=== PATIENT | female | born 2000 | race Caucasian/White ===

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

== ENCOUNTER 2022-04-03 18:29 | Emergency (ER) | payer MEDICAID, SELFPAY ==
[2022-04-03 18:31] VITALS: BP 114/62; PULSE 83; RESP 18; TEMP 37.2; O2SAT 98; BMI 47.8
--- NOTE | 2022-04-03 18:35 | ECG_ITS ---
Test Reason : BACK PAIN Blood Pressure : / mmHG Vent. Rate : 095 BPM Atrial Rate : 095 BPM P-R Int : 162 ms QRS Dur : 088 ms QT Int : 374 ms P-R-T Axes : 039 017 020 degrees QTc Int : 469 ms Normal sinus rhythm Normal ECG When compared with ECG of 06-DEC-2017 13:10, Heart rate has increased Referred By: Generic ED Physician Electronically Signed By:URIEL CASTELAN MD
[2022-04-03 18:37] LABS: Glucose, Whole Blood 104 mg/dL (60-115)
[2022-04-03 18:48] LABS: MANUAL DIFF FLAG NO
[2022-04-03 18:49] LABS: Basophils Percent Auto 0.4 % (0-2); Eosinophils Absolute Auto 0.1 X10*3/uL (0.0-0.4); Eosinophils Percent Auto 0.9 % (0-4); Hematocrit 40.5 % (37.0-47.0); Hemoglobin 13.2 g/dl (12.0-16.0); Imm Gran Abs Auto 0.02 X10*3/uL (0.00-0.03); Imm Gran Pct Auto 0.2 % (0.0-0.4); Lymphocytes Absolute Auto 2.1 X10*3/uL (1.2-4.9); Lymphocytes Percent Auto 19.8 % (20-40); Mean Corpuscular HGB Conc 32.6 g/dl (31.0-35.0); Mean Corpuscular Hemoglobin 26.4 pg (27.0-33.0); Mean Platelet Volume 10.6 fL (9.4-12.3); Monocytes Absolute Auto 0.8 X10*3/uL (0.1-1.2); Monocytes Percent Auto 7.8 % (2-11); Neutrophils Absolute Auto 7.3 x10*3/uL (2.0-8.3); Neutrophils Percent Auto 70.9 % (45-73); Platelet Count 380 X10*3/uL (160-400); Red Cell Distribution Width 13.1 % (11.0-16.0); White Blood Count 10.3 X10*3/uL (4.8-10.8)
[2022-04-03 19:07] LABS: Alanine Aminotransferase 15 U/L (0-31); Albumin Level 4.6 g/dL (3.5-5.0); Alkaline Phosphatase 99 U/L (39-117); Anion Gap 18 (12-20); Aspartate Amino Transferase 13 U/L (5-31); Bilirubin Direct 0.2 mg/dL (0.0-0.5); Bilirubin Total 0.6 mg/dL (0.0-1.0); Blood Urea Nitrogen 10 mg/dL (9-16); Calcium 9.9 mg/dL (8.4-10.2); Carbon Dioxide 24 mmol/L (22-29); Chloride 104 mmol/L (96-108); Creatinine Clr Calc Pharmacy 155.2; Estimated Glomerular Filt Rate > 60; Glucose Random 93 mg/dL (60-115); Lipase 20 U/L (8-78); Potassium 4.1 mmol/L (3.3-5.1); Sodium 142 mmol/L (135-145); Total Protein 8.2 g/dL (6.5-8.0)
[2022-04-03 19:13] LABS: Troponin-I High Sensitivity < 3.5 ng/L (<3.5-17.0)
== END 2022-04-03 22:19 | disposition left against medical advice (07) ==
LOC: HO.ED 22:11
PROVIDERS: Emergency Provider Emergency Medicine; PCP Registered Nurse Community Health
DX: R42 Dizziness and giddiness (principal)
CPT/HCPCS: 36415; 80053; 82248; 82947; 83690; 84484; 85025; 93005; 99283

== ENCOUNTER 2022-10-07 16:05 | Outpatient (REF) | payer MEDICAID, SELFPAY ==
--- NOTE | ~2022-10-07 | US_ITS ---
EXAMINATION: US PELVIS CLINICAL INFORMATION: Irregular menstruation COMPARISON: Previous pelvic ultrasound October 2016 TECHNIQUE: Ultrasound of the pelvis is performed using both transabdominal and transvaginal transducers along with Doppler. Transvaginal imaging is performed due to inadequate visualization transabdominally. Transvaginal exam is limited as the patient could not empty her bladder. FINDINGS: The uterus is anteverted and retroflexed and measures 9.3 x 3.4 x 4.4 cm in dimension. No focal uterine lesion is seen. Endometrial thickness is normal measuring 1 cm. The ovaries are seen transabdominally only and are normal-appearing. The right ovary measures 2.1 x 2 x 2.9 cm and the left ovary measures 3.1 x 2.1 x 2.3 cm. There is no fluid in the pelvis. There is some mobile echogenic debris seen in the bladder. US/US pelvic and transvaginal IMPRESSION: Normal-appearing uterus and bladder. Mobile echogenic debris seen in the bladder. The patient could not empty her bladder for transvaginal exam. Correlation with urinalysis recommended.
== END 2022-10-07 16:06 | disposition home or self-care (01) ==
LOC: HO.US 16:05
PROVIDERS: PCP Internal Medicine; Visit Provider Advanced Practice Midwife
DX: N92.6 Irregular menstruation, unspecified (principal)
CPT/HCPCS: 76830; 76856

== ENCOUNTER 2022-12-21 09:03 | Emergency (ER) | payer MEDICAID, SELFPAY ==
[2022-12-21 09:13] VITALS: BP 131/90; PULSE 86; RESP 18; TEMP 36.7; O2SAT 98; BMI 44.3
[2022-12-21 09:34] LABS: COVID-19 Test Negative (Negative); IDNOW Serial# 6674DD1D
[2022-12-21 09:57] LABS: IDNOW Serial# 08D9AD1C
[2022-12-21 10:00] LABS: Strep A Nucleic Acid Negative (Negative)
--- NOTE | 2022-12-21 10:04 | PC.NURSE ---
Patient with sore throat and URI symptoms. Patient voice harsh at this time. Patient alert and orient, calm and cooperative with staff.
--- NOTE | 2022-12-21 11:04 | ED.GENADULT ---
HPI - General Adult General Chief complaint: Upper Respiratory Symptoms Stated complaint: sore throat/ fever/ discharge eyes Time Seen by Provider: 12/21/22 10:39 Source: patient Mode of arrival: ambulatory Limitations: no limitations History of Present Illness HPI narrative: 22-year-old female presents to ED for sore throat fever, right ear pain, clear discharge from both eyes, body aches, chills, and cough for 3 days. Patient was seen in urgent care yesterday for similar symptoms. patient denies any chest pain or shortness of breath. Patient states no rash, abdominal pain, nausea, vomiting, diarrhea, dysuria, hematuria, flank pain, or vaginal bleeding. Related Data Previous Rx's Medication Instructions Recorded ibuprofen 400 mg tablet 400 mg PO Q6H PRN fever or pain 7 12/21/22 days #28 tabs Allergies Allergy/AdvReac Type Severity Reaction Status Date / Time No Known Allergies Allergy Verified 12/21/22 09:12 [No Known Allergies*] Review of Systems Review of Systems: sore throat, fever, right ear pain, dry cough, crusting in eyes Yes all other systems are reviewed and are negative [facility] Social History Social History Alcohol intake: never Smoked in Last 30 Days: No Use of substances other than those prescribed or required for medical reasons: No Advance Directives: No Advance Directives Information Provided: No Physical Exam ED Vital Signs: Vital Signs - 24 hr 12/21/22 09:13 12/21/22 11:23 Temperature 98.1 F Pulse Rate 86 76 Respiratory Rate 18 16 Blood Pressure 131/90 H 124/75 Pulse Oximetry 98 100 Oxygen Delivery Method Room Air Room Air BMI result Body Mass Index 44.3 Const General: cooperative, healthy appearing, comfortable, no acute distress, well developed, alert, awake and Physically active Orientation/consciousness: oriented to person, oriented to place, oriented to time and patient oriented x3 HENMT Head: Yes normal to inspection, Yes No palpable skull fracture present, Yes normocephalic, Yes atraumatic and No abrasion Ears: hearing grossly normal bilaterally, external ears normal, TM's normal bilaterally, TM normal on the right, TM normal on the left, EAC's normal, mastoids normal and no periauricular adenopathy General nose exam: Normal external nose present and Normal nares present Face and sinus: Yes normal facial exam and Yes sinuses nontender Throat: Yes posterior oropharynx normal, Yes tonsils normal and Yes uvula midline Eyes General: appearance normal, both eyes and all related structures Neck Neck: Yes normal visual inspection, Yes full ROM, Yes no lymphadenopathy, Yes no meningeal signs, Yes trachea midline, Yes supple, No anterior neck swelling and No tender Chest Chest palpation & inspection: normal inspection of the chest and normal palpation of entire chest wall Resp Effort & Inspection: normal respiratory effort and able to speak in complete sentences Auscultation: clear to auscultation bilaterally Cardio Jugular venous distension: no JVD Heart sounds: S1 normal heart sound present and S2 normal heart sound present GI Inspection: Yes normal to inspection and No abdominal wall ecchymosis Palpation (GI): Soft to palpation, not firm, nontender, no guarding and not rigid General: No CVA tenderness and Yes no CVA tenderness Back/Spine/Pelvis Back: no CVA tenderness, No CVA tenderness and No back tenderness Skin General skin exam: no rashes or lesions noted, elasticity normal and turgor normal Neuro General: oriented to person, oriented to place, oriented to time, patient oriented x3, gait normal, tone normal, moves all extremities, Normal light touch and pain sensation, no meningeal signs, no focal motor deficits, CN's II-XI intact bilaterally and normal sensation to monofilament Extrem General: Yes normal to inspection and Yes full ROM Psych Appearance: grossly normal, well kempt and not disheveled Medical Decision Making Medical Decision Making [facility] Narrative: 22-year-old female presents to ED for sore throat, fever, crusting both eys, dry cough, and chills for 3 days. Patient denies any chest pain or shortness of breath. Patient eating food and drinking water at home. Physical exam benign. Most likely patient having viral syndrome. Differential Diagnosis Differential Diagnoses: The differential diagnosis associated with the presentation includes ( URI, strep tonsillitis, pharyngitis, otitis media, otitis externa, viral conjunctivitis, bacterial conjunctivitis, pneumonia) Admission/Observation Consideration of admission/observation: Escalation of care including admission/observation considered Lab Data [facility] Lab Attestation statement: I reviewed the patient's lab results. Labs: Lab Results 12/21/22 12/21/22 Range/Units 09:19 09:19 COVID-19 (KELLI) Negative (Negative) COVID-19 Clin Com See Note S. pyogenes GrpA FARIHA Negative (Negative) Independent Historian Clinical information obtained from an independent historian. History obtained from or confirmed by: Parent (Mother) and Other External Record Review External record reviewed: Other (prior ED visist) Tests considered The following testing was considered but not selected: Chest xray Prescription Management I considered prescription management with: Pain Medication Discharge Plan Discharge Clinical Impression: Upper respiratory infection, Acute viral conjunctivitis Patient Disposition: Home, Self-Care Instructions: Upper Respiratory Infection (DC), Viral Syndrome (ED), Conjunctivitis (ED) Additional Instructions: return to the ED for any chest pain, shortness of breath, weakness, dizziness, inability tolerate solid food / liquid, drooling, change in voice, chest pain, shortness of breath, neck swelling, worsening ear pain, blood from ears, ear drainage, headache, coughing up blood, leg swelling, calf pain, rash, abdominal pain, dysuria, hematuria, diarrhea, or any other concerning symptoms. Please follow up with primary care provider Prescriptions: New ibuprofen 400 mg tablet 400 mg PO Q6H PRN (Reason: fever or pain) 7 Days Qty: 28 0RF Stand Alone Forms: Work/School Release Interventions: ED Discharge Assessment Last Done: 12/21/22 11:23 Discharge Date/Time: 12/21/22 11:25 Print Language: Moz[place]
[2022-12-21 11:23] VITALS: BP 124/75; PULSE 76; RESP 16; O2SAT 100
== END 2022-12-21 11:25 | disposition home or self-care (01) ==
PROVIDERS: Emergency Provider Emergency Medicine Emergency Medical Services; PCP Internal Medicine
DX: J06.9 Acute upper respiratory infection, unspecified (principal); H10.33 Unspecified acute conjunctivitis, bilateral; Z20.822 Contact with and (suspected) exposure to COVID-19
CPT/HCPCS: 87635; 87651; 99283; 99284